=== PATIENT | female | born 1945 | race Caucasian/White ===

== ENCOUNTER 2016-12-19 06:50 | Inpatient (IN) | payer OTHER ==
--- NOTE | ~2016-12-19 | DS ---
Discharge Summary [id number] [place]. [address] NAME: JENNIFER LE : 43 STATUS : DIS IN PAT#: [id number] AGE: 71 ADM/REG DATE : 12/19/16 MR#: [id number] REPORT SERV DATE: 12/30/16 DICTATED BY: VICTORINA CA DATE: 12/25/16 REPORT STATUS : Draft TRANSCRIBED BY: WESLEY DATE: 12/25/16 ADMISSION DATE: 12/19/2016 DISCHARGE DATE: 12/25/2016 DISCHARGE DIAGNOSES: 1. Acute kidney injury. 2. Urinary tract infection. 3. Recurrent falls. 4. Acute encephalopathy. 5. Hypertension. 6. Hypothyroidism. 7. Hyperlipidemia. 8. Diabetes mellitus, type 2. 9. Left orbital abrasion. 10.Occipital contusion. DISCHARGE CONDITION: Stable. CONSULTATION: None. HISTORY OF PRESENT ILLNESS: For detailed HPI, please make reference to Dr. Bobbi Torres' dictation on 12/19/2016. In brief, this is a 71-year-old female who presented to the emergency room department with complaints of recurrent falls. On the day of presentation, the patient was noted to have had a fall at home, became confused, also there was associated hallucination with concerns for possible slurred speech. The patient was in the ER. PHYSICAL EXAMINATION: VITAL SIGNS: Blood pressure was 132/53, pulse was 61 beats per minute, saturating 97%, respiratory rate 17, temperature 97.8. GENERAL: Physical examination was noted for abrasion on the left orbital area. LABORATORY DATA: Significant for creatinine of 3.15, BUN of 33. Troponin less than 0.02. CT scan of the head showed old deep white matter ischemic changes. No acute intracranial pathology noted. Urinalysis shows moderate leukocyte esterase with wbc clumps. EKG was normal sinus rhythm with no acute T-wave changes. An assessment of acute kidney injury, possible urinary tract infection, recurrent fall, and CVA rule out was made in the emergency room. The patient was admitted to the Hospitalist Service. HOSPITAL COURSE: 1. Acute kidney injury likely due to prerenal azotemia, also possibly due to interaction of Bactrim that the patient was taking prior to admission. The patient's Reynolds catheter was placed in the ER. The patient was started on gentle IV fluids. The patient's creatinine subsequently trended down from 3.1, and returned back to baseline of 1.05 prior to discharge. Renal ultrasound was performed and essentially showed a Discharge Summary [address] [place]. [address] NAME: JENNIFER LE : 43 STATUS : DIS IN PAT#: [id number] AGE: 71 ADM/REG DATE : 12/19/16 MR#: [id number] REPORT SERV DATE: 12/30/16 DICTATED BY: VICTORINA CA DATE: 12/25/16 REPORT STATUS : Draft TRANSCRIBED BY: MODL DATE: 12/25/16 bilateral normal kidneys without any chronic kidney changes. No hydronephrosis or obstructive uropathy noted. The patient was advised to continue follow up with primary care physician. 2. Recurrent falls. The patient presented with history of multiple falls at home. CT of the head on presentation shows no acute intracranial pathology; however, hospital stay was complicated by a fall in the bathroom. The patient was noted to have had a slip and fall and hit her head. A repeat CT scan of the head during this admission showed small superior left occipital scalp hematoma concerning for head contusion. Following the fall, the patient complained of headache which was treated symptomatically with Tylenol. No focal deficit was noted after the fall. The patient returned back to her baseline. Physical Therapy evaluated the patient and recommended acute rehab. At the time of this dictation, the patient is pending insurance approval for acute rehab. If the patient is approved today for placement, the patient will likely be discharged. 3. Left orbital abrasion, present on admission due to recurrent falls at home. Wound Care recommended left orbital abrasion, present on admission. CT of the face shows no fractures. Wound Care was consulted during the course of this admission. The patient's abrasion significantly improved throughout the course of admission. The patient was advised to continue Wound Care recommendations. 4. Urinary tract infection. The patient's urinalysis was noted to be positive for leukocyte esterase. Urine cultures were obtained. Blood cultures were also obtained. The patient was started on broad-spectrum antibiotics with IV ceftriaxone. Urine cultures and blood cultures yielded no growth. IV antibiotic was subsequently discontinued. 5. Diabetes mellitus, type 2. A1c 7.3. The patient's blood sugar was controlled with subcu insulin throughout the course of this admission. The patient was advised to continue home dose metformin 1000 mg p.o. b.i.d. at the time of discharge. DISCHARGE DISPOSITION: Acute rehab, pending at the time of this dictation. DISCHARGE ACTIVITY: As tolerated. DISCHARGED DIET: ADA 1800-calorie diet. DISCHARGE FOLLOWUP: Follow up with primary care physician as an outpatient. Greater than 35 minutes was used to prepare this patient's discharge, reconcile medication, and advised the patient on discharge plans and followup. ADDENDUM An addendum to discharge summary dictated by Dr. Victorina Ca, on 12/25/2016. The patient was kept overnight because insurance approval did not go through for subacute rehab placement yesterday. No acute medical conditions happened overnight. The patient continues to remain in stable condition. The patient has now been approved for acute rehab and will be discharged today. The patient to be discharged on the medication already reconciled yesterday. No new medications added. No new recommendations the patient's follow up is as dictated as above. Discharge Summary [address] [address] NAME: JENNIFER LE : 43 STATUS : DIS IN PAT#: [id number] AGE: 71 ADM/REG DATE : 12/19/16 MR#: [id number] REPORT SERV DATE: 12/30/16 DICTATED BY: VICTORINA CA DATE: 12/25/16 REPORT STATUS : Draft TRANSCRIBED BY: WESLEY DATE: 12/25/16 DICTATED BY: MD CARROL Cheney/WESLEY Victorina Ca MD / [id number] / [id number] CC: MD Agusto Cheney
--- NOTE | ~2016-12-19 | HP ---
History And Physical [facility] [address] [place]. [address] NAME: JENNIFER LE : 43 STATUS : ADM IN PAT#: [id number] AGE: 71 ADM/REG DATE : 12/19/16 MR#: [id number] REPORT SERV DATE: 12/19/16 DICTATED BY: KARLEE TORRES DATE: 12/19/16 REPORT STATUS : Draft TRANSCRIBED BY: WESLEY DATE: 12/19/16 DATE OF ADMISSION: 12/19/2016 CHIEF COMPLAINT: Multiple. HISTORY OF PRESENT ILLNESS: The patient is a very pleasant 71-year-old white female. She was recently seen at [facility] on Friday evening, lokie driver of Friday, after she had a fall at home. She states upon standing, drinking some water, she turned, and her lost her balance and she fell on her face. She has apparently had some significant balance issues now for months. She has had several falls. She was seen evaluated at [facility] where she was found to have just basically a skin scraping on her left cheek and also she was told she had a urinary tract infection. She was prescribed Septra and went home. She cannot recall if she got pain medication in the ER, but reports since arriving at home, she did not urinate. She then presented today to [facility] after family noted this morning that she seemed confused and she is having some hallucinations and also her speech was a bit slurred. She reports she did not sleep at all last night. There is a lot of difficult family dynamics going on. She is taking care of her demented sister and had multiple family members who are currently sick and staying at her house. She is currently alert and oriented, and her speech appears normal. She states the hallucinations stopped when she arrived here. Her sister reports she did not sleep at all last night and thought maybe that contributed. A Reynolds catheter was placed. She denies having ongoing fevers or cough. She did have some dysuria a few days ago. The balance problem is not new, she has had it for several months, but she has never had anything really done about it. She has not had any workup for it. PAST MEDICAL HISTORY: 1. Diabetes mellitus. 2. Hypertension. 3. Hyperlipidemia. 4. Obesity. 5. Osteoarthritis. 6. Glaucoma. 7. Hypothyroidism. 8. Peripheral neuropathy. PAST SURGICAL HISTORY: She has had a total abdominal hysterectomy, right total knee arthroplasty, gum surgery. FAMILY HISTORY: Positive for CVA in her dad at age 82 and a sister with a CVA who . There is also a sister with diabetes. SOCIAL HISTORY: She only drinks very rarely. She does not use tobacco and she is , and she is currently taking care of her demented sister. HOME MEDICATIONS: Reviewed and attached. History And Physical [address] [address] NAME: JENNIFER LE : 43 STATUS : ADM IN PAT#: [id number] AGE: 71 ADM/REG DATE : 12/19/16 MR#: [id number] REPORT SERV DATE: 12/19/16 DICTATED BY: KARLEE TORRES DATE: 12/19/16 REPORT STATUS : Draft TRANSCRIBED BY: WESLEY DATE: 12/19/16 PHYSICAL EXAMINATION: VITAL SIGNS: BP 132/53, pulse 61, sats 97%, respiratory rate 17, temperature 97.8. GENERAL: A well-developed, white female. HEENT: She has an obvious bruise, excoriated area on the left cheek and down involving part of her lip, but it is healing. Her throat is clear. NECK: Supple. HEART: Regular rate and rhythm, but distant S1, S2. LUNGS: Grossly clear. ABDOMEN: Soft, nontender, nondistended. EXTREMITIES: Warm and dry. SKIN: Intact without obvious rash or lesion other than the noted excoriation of her face on the left. NEUROLOGIC: She is alert. She is oriented to person, place, and time. Her speech is intact. Cranial nerves 2 through 12 are intact. She has normal strength and tone in all four extremities. Sensation is intact. PSYCH: Mood and affect are appropriate. LABORATORY AND X-RAY: Glucose was 93. CBC: Hemoglobin and hematocrit are 10 and 32, white count 6, platelets are 197. Coags are normal. Chemistry panel is normal other than a BUN and creatinine of 33 and 3.15. Troponin is 0.02. Magnesium is 2.3. Head CT shows atrophy and old deep white matter ischemic change. Urinalysis shows moderate leukocyte esterase, and 21 whites and a few clumps. EKG shows normal sinus rhythm with no acute ST-T wave changes. ASSESSMENT/PLAN: 1. Urinary tract infection. We will place the patient on IV Rocephin and culture urine. Check procalcitonin. 2. Acute kidney injury, multifactorial. Certainly urinary retention may have been playing a role. Also the use of Bactrim. Must also consider rhabdo since she had a recent fall. We will check her CPK. We will hydrate her aggressively. Continue her management with a Reynolds catheter. We will obtain a renal ultrasound to rule out other obstruction involving more proximal aspects of her renal system. We will do serial labs and monitor her creatinine closely and see how things go over the next 24 hours. We will also hold her BRADY and diuretic. 3. Multiple falls and balance issues. This is not acute problems, it seems to be going on for months, but it seems to be causing significant disability. I am going to MRI her brain to rule out that she has had an old stroke in the last 6-12 months. We may want to consider balance training and physical therapy at discharge. 4. Hallucinations this morning and mild encephalopathy with possible slurred speech. I do not think she really had slurred speech. She has a very dry mouth. She is currently clear, alert, oriented to person, place, and time. Her speech is normal. We are going to MRI her head anyway and treat her underlying urinary tract infection, but I suspect this is metabolic. 5. Deep venous thrombosis prophylaxis. Subcutaneous heparin. 6. History of diabetes. Hold metformin for now. Provide sliding scale. 7. History of hyperlipidemia. Holding Zocor in case she has rhabdo. 8. Hypothyroidism. Continue Synthroid. History And Physical [address] [address] NAME: JENNIFER LE : 43 STATUS : ADM IN PAT#: [id number] AGE: 71 ADM/REG DATE : 12/19/16 MR#: [id number] REPORT SERV DATE: 12/19/16 DICTATED BY: KARLEE TORRES DATE: 12/19/16 REPORT STATUS : Draft TRANSCRIBED BY: WESLEY DATE: 12/19/16 9. Hypertension. Holding BRADY and diuretic. We will go ahead and give her a beta solo. 10.Disposition pending above. GERMAN/WESLEY Karlee Torres M.D. / [id number] CC: Madhavi Byrnes PAUL E
[2016-12-19 07:00] LABS: ER CBC TAT 0 Hrs 07 Mins; HEMATOCRIT 31.8 % (36.0-48.0); HEMOGLOBIN 10.2 g/dL (12.0-16.0); MANUAL DIFF YES %; MEAN CORPUS HGB CONC 32.1 g/dL (32.0-36.0); MEAN CORPUSCULAR HEMOGLOB 26.4 pg (26.0-34.0); MEAN CORPUSCULAR VOLUME 82.4 fL (80-100); MEAN PLATELET VOLUME 9.5 fL (9.2-13.0); PLATELET COUNT 197 10/3/uL (150-400); RBC DISTRIBUTION WIDTH 14.2 % (12.0-16.0); RED CELL COUNT 3.86 10/6/uL (4.0-5.6); WHITE BLOOD CELLS 6.1 10/3/uL (4.5-10.5)
[2016-12-19 07:10] LABS: PARTIAL THROMBO TIME 34.1 SEC (22.5-37.2); PROTIME (NOT ORD) 13.1 SEC (12.0-14.5)
[2016-12-19 07:20] LABS: BAND NEUTROPHILS 4 %; EOSINOPHILS 4 %; EOSINOPHILS ABSOLUTE (CALC) 0.24 10/3/uL (0.0-0.53); ER DIFF TAT 0 Hrs 27 Mins; IMMATURE GRANS ABSOLUTE (CALC) 0.06 10/3/uL (0.0-0.11); LYMPHOCYTES 20 %; LYMPHOCYTES ABSOLUTE (CALC) 1.22 10/3/uL (0.67-4.30); METAMYELOCYTES 1 %; MONOCYTES 11 %; MONOCYTES ABSOLUTE (CALC) 0.67 10/3/uL (0.21-1.20); PLATELET ESTIMATE ADQ (ADEQUATE); RBC MORPHOLOGY NORM (NORMAL); SEGMENTED NEUTROPHIL (0) 60 %; TOTAL NUCLEATED CELLS 100
[2016-12-19 07:22] LABS: CALCIUM, SERUM 8.9 MG/DL (8.5-10.4); CHEST PAIN PROFILE TAT 0 Hrs 29 Mins; CHLORIDE, SERUM 100 MMOL/L (96-112); CO2 (CARBON DIOXIDE) 26 MMOL/L (24-34); POTASSIUM, SERUM 4.3 MMOL/L (3.5-5.3); SODIUM, SERUM 135 MMOL/L (135-148); TROPONIN I <0.02 NG/ML (<0.05)
[2016-12-19 07:23] LABS: BUN (BLOOD UREA NITROGEN) 33 MG/DL (6-23); CREATININE 3.15 MG/DL (0.55-1.02); GFR AFRICAN AMERICAN 16 ML/MIN (>=60); GFR NON AFRICAN AMERICAN 14 ML/MIN (>=60); GLUCOSE, SERUM 98 MG/DL (60-99)
[2016-12-19 08:24] LABS: ASCORBIC ACID (UR NOT ORDER) 40 (NEG); BILIRUBIN, URINE NEGATIVE (NEG); ER URINALYSIS TAT 0 Hrs 10 Mins; KETONE, URINE NEGATIVE (NEG); LEUKOCYTE ESTERASE(NOT OR MOD (NEG); NITRITE (URINE) NEG (NEG); WBC (NOT ORDERED) (RFLEX) 21 (0-5)
[2016-12-19] MEDS ORDERED: ZESTORETIC1 TA1 PO (08:25)
[2016-12-19] MEDS ORDERED: XALAT OPH (08:25)
[2016-12-19] MEDS ORDERED: RESTASIS OPH (08:25)
[2016-12-19] MEDS ORDERED: GLUCOPHAGE1000 MG PO (08:26)
[2016-12-19] MEDS ORDERED: NEUR300 PO (08:26)
[2016-12-19] MEDS ORDERED: LEVOTHYROXIN88 MCG PO (08:26)
[2016-12-19] MEDS ORDERED: CELEBREX2 PO (08:26)
[2016-12-19] MEDS ORDERED: ZOCOR20 PO (08:27)
[2016-12-19] MEDS ORDERED: VITC500 PO (08:27)
[2016-12-19] MEDS ORDERED: VITAMIN D2000 UNIT PO (08:27)
[2016-12-19] MEDS ORDERED: TOPXL25 PO (08:27)
[2016-12-19] MEDS ORDERED: B12250T PO (08:27)
[2016-12-19] MEDS ORDERED: CENTRUM PO (08:28)
[2016-12-19] MEDS ORDERED: FISH-EPA1000 MG PO (08:28)
[2016-12-19 13:44] LABS: PROCALCITONIN 1.87 ng/mL (<0.5)
[2016-12-20 07:04] LABS: BASOPHILS 0.2 %; BASOPHILS ABSOLUTE 0.01 10/3/uL (0.0-0.16); EOSINOPHILS 3.6 %; EOSINOPHILS ABSOLUTE 0.17 10/3/uL (0.0-0.53); HEMATOCRIT 30.1 % (36.0-48.0); HEMOGLOBIN 9.9 g/dL (12.0-16.0); LYMPHOCYTES 27.7 %; MEAN CORPUS HGB CONC 32.9 g/dL (32.0-36.0); MEAN CORPUSCULAR HEMOGLOB 26.7 pg (26.0-34.0); MEAN CORPUSCULAR VOLUME 81.1 fL (80-100); MEAN PLATELET VOLUME 9.3 fL (9.2-13.0); MONOCYTES 11.5 %; MONOCYTES ABSOLUTE 0.54 10/3/uL (0.21-1.20); NEUTROPHILS ABSOLUTE 2.67 10/3/uL (2.02-8.40); PLATELET COUNT 191 10/3/uL (150-400); RBC DISTRIBUTION WIDTH 14.3 % (12.0-16.0); RED CELL COUNT 3.71 10/6/uL (4.0-5.6); WHITE BLOOD CELLS 4.7 10/3/uL (4.5-10.5)
[2016-12-20 07:05] LABS: MANUAL DIFF NO %
[2016-12-20 07:21] LABS: CALCIUM, SERUM 8.7 MG/DL (8.5-10.4); CHLORIDE, SERUM 108 MMOL/L (96-112); CO2 (CARBON DIOXIDE) 25 MMOL/L (24-34); GFR AFRICAN AMERICAN 26 ML/MIN (>=60); GFR NON AFRICAN AMERICAN 22 ML/MIN (>=60); GLUCOSE, SERUM 100 MG/DL (60-99); POTASSIUM, SERUM 4.7 MMOL/L (3.5-5.3); SODIUM, SERUM 141 MMOL/L (135-148)
[2016-12-20 07:22] LABS: BUN (BLOOD UREA NITROGEN) 27 MG/DL (6-23); CREATININE 2.16 MG/DL (0.55-1.02)
[2016-12-21 04:36] LABS: BASOPHILS 0.2 %; BASOPHILS ABSOLUTE 0.01 10/3/uL (0.0-0.16); EOSINOPHILS 2.7 %; EOSINOPHILS ABSOLUTE 0.16 10/3/uL (0.0-0.53); HEMATOCRIT 29.4 % (36.0-48.0); HEMOGLOBIN 9.6 g/dL (12.0-16.0); IMMATURE GRANULOCYTES 0.2 %; IMMATURE GRANULOCYTES ABSOLUTE 0.01 10/3/uL (0.0-0.11); LYMPHOCYTES 29.9 %; LYMPHOCYTES ABSOLUTE 1.74 10/3/uL (0.67-4.30); MEAN CORPUS HGB CONC 32.7 g/dL (32.0-36.0); MEAN CORPUSCULAR HEMOGLOB 26.7 pg (26.0-34.0); MEAN CORPUSCULAR VOLUME 81.7 fL (80-100); MEAN PLATELET VOLUME 9.3 fL (9.2-13.0); MONOCYTES 13.2 %; MONOCYTES ABSOLUTE 0.77 10/3/uL (0.21-1.20); NEUTROPHILS 53.8 %; NEUTROPHILS ABSOLUTE 3.13 10/3/uL (2.02-8.40); PLATELET COUNT 225 10/3/uL (150-400); RBC DISTRIBUTION WIDTH 14.2 % (12.0-16.0); WHITE BLOOD CELLS 5.8 10/3/uL (4.5-10.5)
[2016-12-21 04:37] LABS: MANUAL DIFF NO %
[2016-12-21 04:45] LABS: CALCIUM, SERUM 8.5 MG/DL (8.5-10.4); CHLORIDE, SERUM 111 MMOL/L (96-112); CO2 (CARBON DIOXIDE) 26 MMOL/L (24-34); CREATININE 1.68 MG/DL (0.55-1.02); GFR AFRICAN AMERICAN 35 ML/MIN (>=60); GFR NON AFRICAN AMERICAN 30 ML/MIN (>=60); GLUCOSE, SERUM 103 MG/DL (60-99); POTASSIUM, SERUM 4.7 MMOL/L (3.5-5.3); SODIUM, SERUM 142 MMOL/L (135-148)
[2016-12-21 04:46] LABS: BUN (BLOOD UREA NITROGEN) 20 MG/DL (6-23)
[2016-12-22 07:05] LABS: BUN (BLOOD UREA NITROGEN) 14 MG/DL (6-23); CALCIUM, SERUM 9.4 MG/DL (8.5-10.4); CHLORIDE, SERUM 108 MMOL/L (96-112); CO2 (CARBON DIOXIDE) 25 MMOL/L (24-34); CREATININE 1.26 MG/DL (0.55-1.02); GFR AFRICAN AMERICAN 49 ML/MIN (>=60); GFR NON AFRICAN AMERICAN 43 ML/MIN (>=60); GLUCOSE, SERUM 124 MG/DL (60-99); POTASSIUM, SERUM 4.2 MMOL/L (3.5-5.3); SODIUM, SERUM 139 MMOL/L (135-148)
[2016-12-23 05:37] LABS: BASOPHILS 0.2 %; BASOPHILS ABSOLUTE 0.01 10/3/uL (0.0-0.16); EOSINOPHILS 2.6 %; EOSINOPHILS ABSOLUTE 0.15 10/3/uL (0.0-0.53); IMMATURE GRANULOCYTES 0.7 %; IMMATURE GRANULOCYTES ABSOLUTE 0.04 10/3/uL (0.0-0.11); LYMPHOCYTES ABSOLUTE 1.52 10/3/uL (0.67-4.30); MEAN CORPUS HGB CONC 32.4 g/dL (32.0-36.0); MEAN CORPUSCULAR HEMOGLOB 26.4 pg (26.0-34.0); MEAN CORPUSCULAR VOLUME 81.7 fL (80-100); MONOCYTES 10.8 %; MONOCYTES ABSOLUTE 0.63 10/3/uL (0.21-1.20); NEUTROPHILS 59.7 %; NEUTROPHILS ABSOLUTE 3.49 10/3/uL (2.02-8.40); PLATELET COUNT 257 10/3/uL (150-400); RED CELL COUNT 4.16 10/6/uL (4.0-5.6); WHITE BLOOD CELLS 5.8 10/3/uL (4.5-10.5)
[2016-12-23 05:40] LABS: MANUAL DIFF NO %
[2016-12-23 05:52] LABS: BUN (BLOOD UREA NITROGEN) 12 MG/DL (6-23); CALCIUM, SERUM 9.7 MG/DL (8.5-10.4); CHLORIDE, SERUM 109 MMOL/L (96-112); CO2 (CARBON DIOXIDE) 23 MMOL/L (24-34); CREATININE 1.06 MG/DL (0.55-1.02); GFR AFRICAN AMERICAN 61 ML/MIN (>=60); GFR NON AFRICAN AMERICAN 52 ML/MIN (>=60); GLUCOSE, SERUM 119 MG/DL (60-99); POTASSIUM, SERUM 4.1 MMOL/L (3.5-5.3); SODIUM, SERUM 137 MMOL/L (135-148)
[2016-12-24 05:19] LABS: BASOPHILS 0.2 %; BASOPHILS ABSOLUTE 0.01 10/3/uL (0.0-0.16); EOSINOPHILS 2.7 %; EOSINOPHILS ABSOLUTE 0.16 10/3/uL (0.0-0.53); HEMATOCRIT 34.6 % (36.0-48.0); HEMOGLOBIN 11.2 g/dL (12.0-16.0); IMMATURE GRANULOCYTES 0.7 %; IMMATURE GRANULOCYTES ABSOLUTE 0.04 10/3/uL (0.0-0.11); LYMPHOCYTES 33.7 %; LYMPHOCYTES ABSOLUTE 2.02 10/3/uL (0.67-4.30); MEAN CORPUS HGB CONC 32.4 g/dL (32.0-36.0); MEAN CORPUSCULAR HEMOGLOB 26.6 pg (26.0-34.0); MEAN CORPUSCULAR VOLUME 82.2 fL (80-100); MEAN PLATELET VOLUME 8.9 fL (9.2-13.0); MONOCYTES 8.3 %; NEUTROPHILS 54.4 %; NEUTROPHILS ABSOLUTE 3.27 10/3/uL (2.02-8.40); PLATELET COUNT 284 10/3/uL (150-400); RBC DISTRIBUTION WIDTH 14.6 % (12.0-16.0); RED CELL COUNT 4.21 10/6/uL (4.0-5.6)
[2016-12-24 05:23] LABS: MANUAL DIFF NO %
[2016-12-24 05:26] LABS: BUN (BLOOD UREA NITROGEN) 14 MG/DL (6-23); CALCIUM, SERUM 9.5 MG/DL (8.5-10.4); CHLORIDE, SERUM 109 MMOL/L (96-112); CO2 (CARBON DIOXIDE) 23 MMOL/L (24-34); CREATININE 1.05 MG/DL (0.55-1.02); GFR AFRICAN AMERICAN 61 ML/MIN (>=60); GFR NON AFRICAN AMERICAN 53 ML/MIN (>=60); GLUCOSE, SERUM 118 MG/DL (60-99); POTASSIUM, SERUM 4.2 MMOL/L (3.5-5.3); SODIUM, SERUM 142 MMOL/L (135-148)
== END 2016-12-26 14:04 | DRG 682 ==
LOC: ER 06:50 → 6NO 09:18
PROVIDERS: Hospitalist; Internal Medicine; Nurse Practitioner
DX: N17.9 Acute kidney failure, unspecified (principal); G92 Toxic encephalopathy; E11.42 Type 2 diabetes mellitus with diabetic polyneuropathy; N39.0 Urinary tract infection, site not specified; D63.8 Anemia in other chronic diseases classified elsewhere; S00.03XA Contusion of scalp, initial encounter; E03.9 Hypothyroidism, unspecified; W19.XXXA Unspecified fall, initial encounter; E78.5 Hyperlipidemia, unspecified; R33.9 Retention of urine, unspecified; T37.0X5A Adverse effect of sulfonamides, initial encounter; M19.90 Unspecified osteoarthritis, unspecified site; R27.0 Ataxia, unspecified; N18.3 Chronic kidney disease, stage 3 (moderate); S00.212A Abrasion of left eyelid and periocular area, initial encounter; Z91.81 History of falling; Z79.84 Long term (current) use of oral hypoglycemic drugs; Z82.3 Family history of stroke
CPT/HCPCS: 70450; 70551; 76775; 80048; 81001; 82550; 82962; 83735; 84145; 84484; 85025; 85610; 85730; 87040; 87086; 93005; 97110-GP; 97116-GP; 97162-GP; 97164-GP; 97165-GO; 99285; A9270-GY; J0360